=== PATIENT | male | born 1985 | race Caucasian/White ===

== ENCOUNTER 2024-10-30 13:35 | Emergency (ER) | payer OTHER, SELFPAY ==
--- NOTE | ~2024-10-30 | XR_ITS ---
EXAMINATION: XR HAND 3 OR MORE VIEWS RIGHT, XR WRIST 1-2 VIEWS RIGHT HISTORY: dorsal tenderness after fall COMPARISON: There are no prior studies available for comparison. FINDINGS: Six views of the right hand and wrist including a scaphoid view of the wrist are submitted. Osseous mineralization is normal. There is no fracture or dislocation. The joint spaces are preserved. The soft tissues are unremarkable. XR/XR hand RT min 3V IMPRESSION: Unremarkable examination of the right hand and wrist. Electronically signed by: Dexter Thibodeaux MD 10/30/2024 02:24 PM EDT
--- NOTE | ~2024-10-30 | XR_ITS ---
EXAMINATION: XR HAND 3 OR MORE VIEWS RIGHT, XR WRIST 1-2 VIEWS RIGHT HISTORY: dorsal tenderness after fall COMPARISON: There are no prior studies available for comparison. FINDINGS: Six views of the right hand and wrist including a scaphoid view of the wrist are submitted. Osseous mineralization is normal. There is no fracture or dislocation. The joint spaces are preserved. The soft tissues are unremarkable. XR/XR wrist RT 2V IMPRESSION: Unremarkable examination of the right hand and wrist. Electronically signed by: Dexter Thibodeaux MD 10/30/2024 02:24 PM EDT
[2024-10-30 13:51] VITALS: BP 138/77; PULSE 58; RESP 16; TEMP 37; O2SAT 99; BMI 21.4
--- NOTE | 2024-10-30 13:51 | ED_ITS ---
HPI - General Adult General Chief complaint: Extremity Problem Stated complaint: R Hand Pain Injury 10/26/24 Time Seen by Provider: 10/30/24 15:36 Source: patient Mode of arrival: ambulatory Limitations: no limitations History of Present Illness ED Provider: Rayshawn EATON HPI narrative: Patient is a 39-year-old right hand dominant male without significant PMHx presenting with complaint of dorsal hand pain since multiple slip and falls outdoors over the weekend. 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 Denies radicular symptoms, numbness, tingling, chest pain or SOB. complaint: right hand pain Onset (ago): day(s) (3) Location: right and upper extremity (right wrist) Radiation: non-radiation Severity: mild Quality: aching Pain Consistency: constant Relieving factors: none Exacerbating factors: movement Associated symptoms: denies other symptoms Treatments prior to arrival: NSAID (Advil) Related Data Allergies Allergy/AdvReac Type Severity Reaction Status Date / Time Penicillins AdvReac Hives Verified 10/30/24 13:52 Review of Systems Review of Systems: As per HPI Yes all other systems are reviewed and are negative Constitutional: Constitutional: Reports as per HPI [facility] Past Medical History Attestation statement: The following information was validated with the patient. Source: old records reviewed Physical Exam ED Vital Signs: Vital Signs - 24 hr 10/30/24 13:51 Temperature 98.6 F Pulse Rate 58 Respiratory Rate 16 Blood Pressure 138/77 Pulse Oximetry 99 Oxygen Delivery Method Room Air BMI result Body Mass Index 21.4 Vital signs have been reviewed and appear to be correct. Blood pressure normal. Heart rate normal. Respiratory rate normal. Temperature normal. Oxygen saturation normal. Const General: cooperative, healthy appearing and no acute distress Orientation/consciousness: oriented to person, oriented to place, oriented to time and patient oriented x3 Limitations: no limitations HENMT Head: Yes normocephalic and Yes atraumatic Ears: external ears normal General nose exam: Normal external nose present Face and sinus: Yes face symmetric Mouth: oropharynx normal and moist mucous membranes Throat: Yes uvula midline Eyes Pupils: Equal, round and reactive pupils present Neck Neck: Yes normal visual inspection and Yes supple Resp Effort & Inspection: normal respiratory effort and able to speak in complete sentences Auscultation: clear to auscultation bilaterally Cardio Rate: regular rate Rhythm: regular rhythm Heart sounds: S1 normal heart sound present and S2 normal heart sound present Skin General skin exam: elasticity normal and turgor normal Neuro General: oriented to person, oriented to place, oriented to time, patient oriented x3, moves all extremities, no focal motor deficits and CN's II-XI intact bilaterally Cranial nerves: Yes Equal, round and reactive pupils present Cognition (Neuro): normal cognition Extrem General: Yes full ROM, Yes no pedal edema and Yes no calf tenderness Right upper extremity: normal to inspection, normal capillary refill and Extremity exam: right hand Details: normal to inspection, normal capillary refill, neuromotor exam normal and neuromotor exam abnormal; swelling and no ecchymosis; no cyanosis and no edema Course Course Course Narrative: This is a rapid medical exam performed by Hernan Tabares NP: Additional HPI, ROS, PE not included below will be deferred to primary provider. Patient is a 39-year-old right hand dominant male presenting with complaint of dorsal hand pain since multiple slip and falls outdoors over the weekend. 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 Plan: xray Reevaluation(s) Reevaluation #1: X-ray of hand/wrist, with no fracture or acute findings. Time: 15:51 Medical Decision Making Medical Decision Making MDM Narrative: Patient is a 39-year-old right hand dominant male without significant PMHx presenting with complaint of dorsal hand pain since multiple slip and falls outdoors over the weekend. 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 VSS, in no acute distress, non-toxic appearing. On physical exam, right hand and wrist has full ROM, no radicular symptoms, no numbness/tingling, appropriate capillary refill. Compartments soft, no ecchymosis, edema or overlying skin changes. No concern for compartment syndrome or nerve impingement. R hand/wrist X-ray with no acute fracture or osseous findings. Patient counseled on OTERO care and alternating Tylenol/Motrin every 6 hours for pain management. Return precautions discussed. Patient verbalized understanding of and agreement with plan. Differential Diagnosis Differential Diagnoses: The differential diagnosis associated with the presentation includes Wrist sprain, strain, fracture, hand sprain, strain, fracture, scaphoid fracture, nerve impingement, compartment syndrome, Admission/Observation Consideration of admission/observation: Escalation of care including admission/observation considered Patient would have been admitted to the hospital had their work up had any findings where hospital admission was appropriate and their clinical presentation warranted hospital admission. Independent Interpretation I performed an independent interpretation of an: Plain X-Ray Interpretation: I performed an independent interpretation of wrist and hand x-ray and agree with the radiologist's findings Radiology Impression Discussion of test interpretation with radiology: I have reviewed the radiologist's reading. Radiologist Impression: Wrist X-ray EXAMINATION: XR HAND 3 OR MORE VIEWS RIGHT, XR WRIST 1-2 VIEWS RIGHT HISTORY: dorsal tenderness after fall COMPARISON: There are no prior studies available for comparison. FINDINGS: Six views of the right hand and wrist including a scaphoid view of the wrist are submitted. Osseous mineralization is normal. There is no fracture or dislocation. The joint spaces are preserved. The soft tissues are unremarkable. XR/XR wrist RT 2V IMPRESSION: Unremarkable examination of the right hand and wrist. Electronically signed by: Dexter Thibodeaux MD 10/30/2024 02:24 PM EDT Hand X-ray EXAMINATION: XR HAND 3 OR MORE VIEWS RIGHT, XR WRIST 1-2 VIEWS RIGHT HISTORY: dorsal tenderness after fall COMPARISON: There are no prior studies available for comparison. FINDINGS: Six views of the right hand and wrist including a scaphoid view of the wrist are submitted. Osseous mineralization is normal. There is no fracture or dislocation. The joint spaces are preserved. The soft tissues are unremarkable. XR/XR hand RT min 3V IMPRESSION: Unremarkable examination of the right hand and wrist. Electronically signed by: Dexter Thibodeaux MD 10/30/2024 02:24 PM EDT External Record Review External record reviewed: Inpatient record, Office record and Outpatient record Discharge Plan Discharge Clinical Impression: Sprain and strain of right hand Patient Disposition: Home, Self-Care Instructions: Wrist Injury (ED), Sprain (ED), How to Use an Elastic Bandage (ED), P.R.I.C.E. Treatment (ED) Additional Instructions: You were evaluated today for a right hand injury. The x-ray of your hand and wrist showed no acute fracture. You can alternate Tylenol and Motrin every 6 hours for pain relief. You can elevate the extremity, rest, ice wrapped in a towel on the affected area for 15 minute intervals, compression with Caden bandage for further pain relief. You should follow-up with your PCP to ensure improvement. You should return to the emergency department if you experience skin changes, numbness, tingling, inability to move your hand, chest pain, shortness of breath, fever over 100.4?, or any new or concerning symptoms. Print Language: Citizen Of [place]
[2024-10-30 16:53] VITALS: BP 131/74; PULSE 46; RESP 16; TEMP 36.3; O2SAT 100
[2024-10-30 16:55] VITALS: BP 131/74; PULSE 46; RESP 16; TEMP 36.3; O2SAT 100
== END 2024-10-30 17:08 | disposition home or self-care (01) ==
LOC: HO.ED 17:06
PROVIDERS: Emergency Provider Emergency Medicine
DX: M79.641 Pain in right hand (principal); M25.531 Pain in right wrist
CPT/HCPCS: 73100; 73130; 99282; 99283

== ENCOUNTER → 2024-10-30 13:52 | Outpatient (BNV) | payer OTHER, SELFPAY | PROVIDERS: Visit Provider Radiology Diagnostic Radiology | DX: M79.641 Pain in right hand (principal); M25.531 Pain in right wrist | CPT/HCPCS: 73100; 73130 ==